=== PATIENT | female | born 1965 | race Caucasian/White ===

== ENCOUNTER 2016-04-10 18:06 | Inpatient (IN) | payer OTHER ==
--- NOTE | 2016-04-10 18:41 | ED Physician Chart ---
Chief Complaint/HPI - Patient Information Date Seen:: 04/10/16 Time Seen:: 18:20 Chief Complaint:: chest pain and shortness of breath History of Present Illness:: onset last night of chest pain and shortness of breath. Chest pain is substernal, sharp, and radiates to left arm. No recent cough. Has left flank pain diagnosed as a UTI one week ago. Took a baby aspirin this am. Allergies:: Allergies Allergy/AdvReac Type Severity Reaction Status Date / Time MDX SULFA (sulfonamide) Allergy Unknown Verified 09/11/12 16:31 [SULFA (sulfonamide)] Historian:: Patient Review:: Nurse's Note Reviewed Review of Systems - Review of Systems General/Constitutional: No fever, No chills Skin: No skin lesions Head: No headache Eyes: No loss of vision ENT: No earache Neck: No neck pain Cardio Vascular: Chest pain Pulmonary: SOB GI: No nausea, No vomiting G/U: No dysuria, No frequency Musculoskeletal: No bone or joint pain, No muscle pain Endocrine: No polyuria, No polydipsia Psychiatric: No prior psych history, No depression Hematopoietic: No bruising Allergic/Immuno: No urticaria Neurological: No syncope, No focal symptoms Past Medical History - Past Medical History Past Medical History: HTN, DM, CHF, Dyslipidemia, PUD/GERD, Other ( hypercholesterolemia) Family History: Heart disease, Diabetes Melitus, HTN Social History: Smoker, Alcohol Surgical History: Cholecystectomy, , other (fracture mandible; tubal ligation) Labs/Radiology/EKG Results - Lab Results Results: Laboratory Results - last 24 hr 04/10/16 04/10/16 04/10/16 18:20 18:20 18:20 WBC 13.0 H D RBC 4.44 Hgb 12.1 D Hct 36.0 D MCV 81.0 MCH 27.2 MCHC Differential 33.6 RDW 14.1 Plt Count 295 MPV 10.1 Neutrophils % 76.0 Lymphocytes % 18.1 L Monocytes % 3.4 Eosinophils % 1.6 Basophils % 0.9 Sodium 134 L Potassium 4.2 Chloride 99 Carbon Dioxide 22.6 Anion Gap 16.6 H BUN 23 Creatinine 1.0 Est GFR ( Amer) > 60.0 Est GFR (Non-Af Amer) > 60.0 BUN/Creatinine Ratio 23.0 Glucose 326 H Calcium 10.0 Magnesium Troponin I B-Natriuretic Peptide 31.4 04/10/16 04/10/16 18:20 18:20 WBC RBC Hgb Hct MCV MCH MCHC Differential RDW Plt Count MPV Neutrophils % Lymphocytes % Monocytes % Eosinophils % Basophils % Sodium Potassium Chloride Carbon Dioxide Anion Gap BUN Creatinine Est GFR ( Amer) Est GFR (Non-Af Amer) BUN/Creatinine Ratio Glucose Calcium Magnesium 1.4 L Troponin I < 0.01 L B-Natriuretic Peptide - EKG Interpretations Rhythm: sinus tach [place]: borderline LAD ED Septic Shock - . Is Septic Shock (SBP<90, OR Lactate>4 mmol\L) present?: No Reassessment (Disposition) - Reassessment Reassessment Condition:: Improved - Diagnosis Diagnosis:: chest pain; diabetes; hyperglycemia - Patient Disposition Admitted to:: Telemetry Spoke to:: Sancho Singh Admitting Medical Physician:: Sancho Singh Condition at Disposition:: Stable, Improved
[2016-04-10 18:43] LABS: % BASOPHILS 0.9 % (0.0-2.0); % EOSINOPHILS 1.6 % (0.0-5.0); % LYMPHOCYTES 18.1 % (20.0-50.0); % MONOCYTES 3.4 % (2.0-10.0); MEAN CORPUSCULAR HEMOGLOBIN 27.2 pg (27.0-31.0); MEAN CORPUSCULAR HGB CONC 33.6 pg (28.0-36.0); MEAN PLATELET VOLUME 10.1 fl; NEUTROPHILE ABSOLUTE 9.9 Th/cmm (1.8-8.0); PLATELET COUNT 295 Th/cmm (150-400); RED BLOOD COUNT 4.44 Mil/cmm (3.80-5.10); RED CELL DISTRIBUTION WIDTH 14.1 % (11.5-20.0)
[2016-04-10 18:46] LABS: HEMOGLOBIN 12.1 gm/dL (11.7-15.5)
[2016-04-10 18:56] LABS: ANION GAP 16.6 (7.0-16.0); BUN - UREA NITROGEN 23 mg/dL (7-25); CARBON DIOXIDE 22.6 mEq/L (21.0-31.0); CHLORIDE 99 mEq/L (98-107); GLUCOSE 326 mg/dL (70-105); POTASSIUM SERUM 4.2 mEq/L (3.5-5.1); SODIUM SERUM 134 mEq/L (136-145)
[2016-04-10] MEDS ORDERED: Mag Sulfate 2gm/50mL Premix 2 GM/50 ML BAG IV ONE ×2 (19:55→20:16)
[2016-04-10] MEDS ORDERED: Non-Formulary Item 1 EA (Albuterol Sulfate [Ventolin Hfa] 1 PUFF) IH PRN (23:18)
[2016-04-10] MEDS ORDERED: HYDROmorphone 1 mg/mL 1mL Syr IVP PRN (23:27)
[2016-04-10] MEDS ORDERED: HYDROmorphone 1 mg/mL 1mL Syr ONE (23:31)
[2016-04-11 00:38] VITALS: BP 115/79
[2016-04-11] MEDS: Sodium Chloride 0.9% 1,000 ML IV SCH ×2 (02:32→20:13)
--- NOTE | 2016-04-11 05:57 | Admit Criteria Form ---
Admit Criteria Forms - Admit Criteria Diagnosis: CHEST PAIN Clinical Indications for Admission to Inpatient Care (Place 'X' for any and all applicable criteria): Admission is indicated for chest pain and ANY ONE of the following(1)(2)(3)(4)(5 ): [ ]I. Angina with acute coronary syndrome (Also use Myocardial Infarction or Angina guideline) [ ]II. Hemodynamic instability [X ]III. Angina needing acute intervention as indicated by ALL of the following (11)(12): [X ]a) Unstable angina is present as indicated by angina that is ANY ONE of the following: [X ]i) New onset [ ]ii) Nocturnal [ ]iii) Prolonged at rest [ ]iv) Progressive [ X]b) Angina warrants acute intervention as indicated by ANY ONE of the following: [ ]i) Recurrent angina (e.g, not responding as previously to treatment) [ ]ii) Angina at rest or with low-level activities despite initial medical therapy [ ]iii) New or presumably new ST-segment depression on ECG [ ]iv) Signs or symptoms of heart failure (eg, dyspnea, pulmonary edema) [ ]v) New or worsening mitral regurgitation [ ]vi) Hemodynamic instability [ ]vii) Dangerous arrhythmia (eg, sustained ventricular tachycardia) [ ]viii) History of percutaneous coronary intervention within 6 months [ ]ix) History of coronary artery bypass graft surgery [ ]x) YOANA risk score of 2 or greater[A] [X ]xi) History of Diabetes(14) [ ]xii) High-risk cardiac ischemia findings on noninvasive testing (e.g, echocardiogram, treadmill testing, nuclear scan) [ ]xiii) Chronic renal insufficiency (ie, estimated GFR less than 60 mL/min/1.732m) [ ]xiv) Left ventricular ejection fraction less than 40% [ ]IV. Evidence of VA (eg, cardiac biomarkers positive, ST-segment elevation on ECG) also use Myocardial Infarction Criteria Form. [ ]V. Pulmonary edema [ ]. Respiratory distress [ ]VII. Chest pain indicative of serious diagnosis other than coronary artery disease (eg, aortic dissection) [ ]VIII. Contraindications and/or Inappropriate clinical situations for Observational Care in patients with Chest Pain, when ANY ONE of the following is required: [ ]a) Patient with risk factor for pulmonary embolism, acute coronary syndrome and myocardial infarction (18) [ ]b) Patient with Pulmonary embolism require an average LOS of 4.3 days, therefore emergency department observation management is inappropriate 18,23 [ ]c) Painful condition/s in the elderly, have the highest rate of recidivism after emergency department observation management (10.8%) 20,21,22 [ ]d) Elevated cardiac biomarker requires intensive and exhaustive care (19) [ ]IX. General contraindications and/or Inappropriate clinical situations for Observational Care in patients with Chest Pain, when ANY ONE of the following is required: [ ]a) Prediction of prolongation of LOS based on ANY ONE of the following may be considered as a contraindication for observational care 2, 3, 4, 5, 6, 7, 8, 9, 10, 11 [ ]i) Age > 65 yrs. [ ]ii) Patient arriving by ambulance [ ]iii) Patient with high acuity [ ]iv) Patient requiring vital sign monitoring [ ]v) Patient on IV medication [ ]b) Systolic blood pressures 180mmHg 3,12 [ ]c) Patient with altered mental status including delirium and other alteration of consciousness, (3) [ ]d) Patient whose discharge disposition will be to a senior living home or rehabilitation home should not be managed in Emergency Department Observation Unit. CMS rule requires 3 days hospital stay before such placement. 3,13 [ ]e) Patient with failure to thrive due to broad array of etiologies 3,16,17 [ ]f) Inability to ambulate 3,14 Extended stay beyond goal length of stay may be needed for (1)(28): [ ]a) Specific condition diagnosed after evaluation (eg, pulmonary embolism, aortic dissection) [ ]b) Unstable angina [ ]c) Continued suspicion of acute coronary syndrome with inability to complete needed cardiac evaluation (eg, patient clinically unable to undergo stress testing) [ ]d) Myocardial infarction (Contents from ANGINA and CHEST PAIN clinical indications for admission to inpatient care have been integrated in this form) The original [facility] [employer] content created by [employer] has been revised. The portions of the content which have been revised are identified through the use of italic text or in bold, and [facility] has neither reviewed nor approved the modified material. All other unmodified content is copyright [facility]. Please see references footnoted in the original [facility] [employer] edition 2016 Admit Criteria Met?: Yes
[2016-04-11] MEDS: Levothyroxine 0.075 Mg Tab PO SCH (06:34)
[2016-04-11] MEDS: INSULIN ASPART SLIDING SCALE 100 UNITS/ML UNIT SUBQ SCH ×4 (06:35→20:15)
--- NOTE | 2016-04-11 08:02 | General Progress Note ---
Subjective - Review of Systems Service Date: 04/11/16 Subjective: I have abdominal pain Objective - Results Result Diagrams: 04/10/16 18:20 04/10/16 18:20 Recent Labs: Laboratory Last Values WBC 13.0 Th/cmm (4.8-10.8) H D 04/10/16 18:20 RBC 4.44 Mil/cmm (3.80-5.10) 04/10/16 18:20 Hgb 12.1 gm/dL (11.7-15.5) D 04/10/16 18:20 Hct 36.0 % (35.0-45.0) D 04/10/16 18:20 MCV 81.0 fl (81-100) 04/10/16 18:20 MCH 27.2 pg (27.0-31.0) 04/10/16 18:20 MCHC Differential 33.6 pg (28.0-36.0) 04/10/16 18:20 RDW 14.1 % (11.5-20.0) 04/10/16 18:20 Plt Count 295 Th/cmm (150-400) 04/10/16 18:20 MPV 10.1 fl 04/10/16 18:20 Neutrophils % 76.0 % (40.0-80.0) 04/10/16 18:20 Lymphocytes % 18.1 % (20.0-50.0) L 04/10/16 18:20 Monocytes % 3.4 % (2.0-10.0) 04/10/16 18:20 Eosinophils % 1.6 % (0.0-5.0) 04/10/16 18:20 Basophils % 0.9 % (0.0-2.0) 04/10/16 18:20 Sodium 134 mEq/L (136-145) L 04/10/16 18:20 Potassium 4.2 mEq/L (3.5-5.1) 04/10/16 18:20 Chloride 99 mEq/L (98-107) 04/10/16 18:20 Carbon Dioxide 22.6 mEq/L (21.0-31.0) 04/10/16 18:20 Anion Gap 16.6 (7.0-16.0) H 04/10/16 18:20 BUN 23 mg/dL (7-25) 04/10/16 18:20 Creatinine 1.0 mg/dL (0.6-1.2) 04/10/16 18:20 Est GFR ( Amer) > 60.0 ml/min (>90) 04/10/16 18:20 Est GFR (Non-Af Amer) > 60.0 ml/min 04/10/16 18:20 BUN/Creatinine Ratio 23.0 04/10/16 18:20 Glucose 326 mg/dL (70-105) H 04/10/16 18:20 POC Glucose 262 MG/DL (70 - 105) H 04/11/16 06:27 Hemoglobin A1c % 14.3 % (4.0-6.0) H 04/10/16 18:20 Calcium 10.0 mg/dL (8.6-10.3) 04/10/16 18:20 Magnesium 1.4 mg/dL (1.9-2.7) L 04/10/16 18:20 Troponin I < 0.01 ng/mL (0.01-0.05) L 04/10/16 18:20 B-Natriuretic Peptide 31.4 pg/mL (5.0-100.0) 04/10/16 18:20 - Physical Exam Vitals and I&O: Vital Signs Temp 98.2 F 04/11/16 04:00 Pulse 83 04/11/16 04:00 Resp 20 04/11/16 04:00 BP 102/61 04/11/16 04:00 Pulse Ox 83 04/11/16 04:00 Intake & Output 04/10/16 04/11/16 04/11/16 18:59 06:59 18:59 Intake Total 250 Balance 250 Weight (lbs) 127.006 kg Intake: Intake, IV Amount 50 Mag Sulfate 2gm/50mL 50 Premix 2 gm In 50 ml @ 25 mls/hr IV X1 ONE Rx#: [id number] Oral 200 Other: # Voids 3 Active Medications: Current Medications Acetaminophen/Hydrocodone Bitart ([place] 5mg/325mg) 1 tab PO Q6H PRN PRN Reason: Pain (Moderate) Stop: 06/10/16 07:48 Aspirin (Aspirin Chewable) 81 mg PO DAILY OMAR Stop: 06/10/16 08:59 Ergocalciferol (Vitamin D) 50,000 iu PO QTUE@0900 OMAR Stop: 06/14/16 08:59 Furosemide (Lasix) 20 mg PO DAILY OMAR Stop: 06/10/16 08:59 Hydromorphone HCl (Dilaudid) 1 mg IVP ONCE PRN PRN Reason: Chest Pain Stop: 06/09/16 23:26 Last Admin: 04/10/16 23:33 Dose: 1 mg Sodium Chloride (Nacl 0.9%) 1,000 mls @ 50 mls/hr IV .Q20H OMAR Stop: 06/09/16 23:29 Last Admin: 04/11/16 02:32 Dose: 50 mls/hr Ceftriaxone Sodium 1 gm/ (Sodium Chloride) 50 mls @ 100 mls/hr IV Q24HR OMAR Stop: 06/10/16 07:59 Insulin Aspart (Novolog Insulin Sliding Scale) 0 units SUBQ ACHS OMAR PRN Reason: Protocol Stop: 06/10/16 07:29 Last Admin: 04/11/16 06:35 Dose: 1,000 units Levothyroxine Sodium (Synthroid) 0.075 mg PO QDAC OMAR Stop: 06/10/16 07:29 Last Admin: 04/11/16 06:34 Dose: 0.075 mg Lisinopril (Zestril) 20 mg PO DAILY OMAR Stop: 06/10/16 08:59 Metformin HCl (Glucophage) 1,000 mg PO BIDWM [facility] Stop: 06/10/16 07:59 Miscellaneous (Albuterol Sulfate [Ventolin Hfa]) 1 puff IH PRN PRN PRN Reason: DYSPNEA Miscellaneous (Alprazolam [Alprazolam*]) 0.5 mg PO DAILY [facility] Stop: 06/10/16 08:59 Miscellaneous (Beclomethasone Dipropionate [Qvar]) 8.7 gm IH DAILY [facility]MAR Stop: 06/10/16 08:59 Pantoprazole Sodium (Protonix) 40 mg PO DAILY [facility] Stop: 06/10/16 08:59 Potassium Chloride (Klor-Con) 10 meq PO DAILY [facility] Stop: 06/10/16 08:59 Simvastatin (Zocor) 20 mg PO QPM OMAR PRN Reason: Protocol Stop: 06/10/16 16:59 General: Alert, Oriented x3, Cooperative, Mild distress HEENT: Atraumatic Neck: Supple Cardiovascular: Regular rate Lungs: Clear to auscultation Abdomen: Bowel sounds, Other (Tender at palpation in left blank) Extremities: Other (No edema) Neurological: Normal gait Skin: Other ([place] nad dry) Psych/Mental Status: Mental status NL - Procedures Procedures: Procedures Procedure Code Date DRESSING OF WOUND NEC 93.57 10/08/08 Assessment/Plan - Problem List Patient Problems: All Active Problems CHEST PAIN WITH DYSPNEA (Acute) Dermatitis (Acute) L30.9 Toe swelling (Acute) M79.89 scabies (Acute) - Assessment Assessment: Patient is awake alert, calm. Dx: Chest pain and SOB, CHF, DM, HTN, Hypothyroidism, Hyperlipemia, Acid reflux. - Plan Plan: Awaiting Cardiology eval, Abdominal US requested, UA and tsh requested. Ceftriaxone added to treatment.
[2016-04-11] MEDS: Potassium Chloride 10 mEq ER Tab PO SCH (08:18)
[2016-04-11] MEDS: Pantoprazole 40 mg EC Tab PO SCH (08:18)
[2016-04-11] MEDS: Aspirin 81mg Chewable Tab PO SCH (08:18)
[2016-04-11] MEDS ORDERED: HYDROmorphone 1 mg/mL 1mL Syr IVP ONE (08:30)
[2016-04-11] MEDS: Hydrocodone/APAP 5mg/325mg Tab PO PRN ×2 (08:31→18:22)
[2016-04-11] MEDS ORDERED: BECLOMETHASONE DIPROPIONATE 8.7 GM IH SCH (09:00)
[2016-04-11] MEDS: cefTRIAXone 1 GM in Sodium Chloride 0.9% 50 ML IV SCH (09:09)
--- NOTE | 2016-04-11 09:26 | History & Physical ---
CHIEF COMPLAINT: Chest pain and shortness of breath. HISTORY OF PRESENT ILLNESS: This is the case of a 50-year-old female who referred last night she started to have shortness of breath and chest pain. Chest pain worse and radiates to the left arm. Reason why, she was decided to come to Emergency Room for evaluation and treatment. PAST MEDICAL HISTORY: The patient has past medical history of congestive heart failure, diabetes mellitus, hypertension, hyperlipidemia, hypothyroidism and acid reflux and obesity. SOCIAL HISTORY: The patient lives at home. She referred smoking and drinking occasionally. She denies use of drugs. FAMILY HISTORY: Unremarkable. PAST SURGICAL HISTORY: The patient refers 1 , cholecystectomy, and salpingoplasty. ALLERGIES: THE PATIENT IS ALLERGIC TO ____. REVIEW OF SYSTEMS: LUNGS: The patient referred shortness of breath. HEART: The patient referred chest pain. ABDOMEN: The patient referred abdominal pain in the left flank. EXTREMITIES: Unremarkable. PHYSICAL EXAMINATION: GENERAL: The patient is awake, alert, in no acute distress at this moment. HEENT: Head is normocephalic and atraumatic. Eyes: Pupils reactive to light. Fundus not examined at this time. Nose: No evidence of nasal obstruction. Ears: No evidence of any discharge. Mouth: Fairly ____. LUNGS: Bilateral air entry. No wheezing, no crackles. HEART: Regular and rhythmic. ABDOMEN: Soft and tender on palpation in the left flank. Bowel sounds present. EXTREMITIES: No edema. Full movement of all extremities. NEUROLOGICAL: The patient is awake, alert, in no acute distress. Nerves 2-12 grossly intact. No neurological deficit at this moment. IMPRESSION: 1. Typical chest pain. 2. Congestive heart failure. 3. Diabetes mellitus. 4. Hypertension. 5. Hypothyroidism. 6. Hyperlipidemia. 7. Acid reflux. PLAN: 1. The patient will be admitted in the telemetry unit. 2. Continue with home medications. 3. Consult with Dr. Laz Taylor, Cardiology. 4. CBC, CMP, TSH in a.m. 5. Abdominal ultrasound. 6. Diet: Low in sodium and diabetic diet. JOB# [id number]
--- NOTE | 2016-04-11 11:29 | Diagnostic Imaging Report ---
Portable chest x-ray History: Pain Allowing for portable technique the heart size is normal. No focal pulmonary parenchymal processes. No hilar or mediastinal abnormalities. Impression: No acute abnormalities.
[2016-04-11 18:29] LABS: URINE BACTERIA FEW /hpf (NONE SEEN); URINE BILIRUBIN NEGATIVE (NEGATIVE); URINE BLOOD NEGATIVE (NEGATIVE); URINE COLOR YELLOW; URINE EPITHELIAL CELLS FEW /lpf (FEW); URINE GLUCOSE (UA) 100 mg/dL (NEGATIVE); URINE KETONE NEGATIVE (NEGATIVE); URINE PH 5.5; URINE PROTEIN NEGATIVE (NEGATIVE); URINE RBC NONE SEEN /hpf (0-5); URINE UROBILINOGEN 0.2 E.U./dL (0.2 - 1.0); URINE WBC 0-2 /hpf (0-5)
[2016-04-11 21:58] LABS: % BASOPHILS 0.8 % (0.0-2.0); % EOSINOPHILS 4.5 % (0.0-5.0); % LYMPHOCYTES 20.9 % (20.0-50.0); % MONOCYTES 5.6 % (2.0-10.0); % NEUTROPHILS 68.2 % (40.0-80.0); HEMATOCRIT 33.4 % (35.0-45.0); HEMOGLOBIN 11.1 gm/dL (11.7-15.5); MEAN CELL VOLUME 80.9 fl (81-100); MEAN CORPUSCULAR HGB CONC 33.4 pg (28.0-36.0); MEAN PLATELET VOLUME 9.1 fl; NEUTROPHILE ABSOLUTE 8.3 Th/cmm (1.8-8.0); PLATELET COUNT 269 Th/cmm (150-400); RED BLOOD COUNT 4.13 Mil/cmm (3.80-5.10); RED CELL DISTRIBUTION WIDTH 13.9 % (11.5-20.0); WHITE BLOOD COUNT 12.1 Th/cmm (4.8-10.8)
[2016-04-11 22:12] LABS: ALB/GLOB RATIO 0.9 (1.0-1.8); ALKALINE PHOSPHATASE 44 U/L (34-104); ANION GAP 10.7 (7.0-16.0); BILIRUBIN,TOTAL 0.4 mg/dL (0.3-1.0); BUN - UREA NITROGEN 18 mg/dL (7-25); BUN/CREATININE RATIO 22.5; CALCIUM SERUM 9.3 mg/dL (8.6-10.3); CARBON DIOXIDE 26.4 mEq/L (21.0-31.0); CHLORIDE 100 mEq/L (98-107); CREATININE - SERUM 0.8 mg/dL (0.6-1.2); GLUCOSE 217 mg/dL (70-105); POTASSIUM SERUM 4.1 mEq/L (3.5-5.1); SGOT 11 U/L (13-39); SGPT/ALT 11 U/L (7-52); SODIUM SERUM 133 mEq/L (136-145)
--- NOTE | 2016-04-12 01:54 | Consultation ---
The patient is of Dr. Singh. HISTORY AND PHYSICAL: This is a 50-year-old obese female patient who had been complaining of chest pain and shortness of breath. Following this, the patient came to the Emergency Room. The patient has troponin level normal. The patient has uncontrolled diabetes and the patient is admitted. PAST MEDICAL HISTORY: Congestive heart failure, diabetes mellitus type 2, hypertension, hyperlipidemia, hypothyroidism, GERD, obesity, cholecystectomy, and . FAMILY HISTORY: Unremarkable. SOCIAL HISTORY: No history of smoking or alcohol abuse. ALLERGIES: No known allergies. PHYSICAL EXAMINATION: VITAL SIGNS: Blood pressure 138/82, pulse 78, and respirations 28. HEAD: Normocephalic. No lumps or bumps. EYES: Pupils are equal and reactive to light. Fundi show AV nicking, sclerae white, and conjunctivae pink. NECK: Carotid 2+. Normal upstroke. JVD flat. Thyroid not palpable. Lymph nodes not palpable. CHEST: Shows increased AP diameter. No kyphosis or scoliosis. LUNGS: Bilateral bronchovesicular breath sounds. HEART: PMI fifth intercostal space with lateral to midclavicular line. S1 and S2. No S3, S4. Systolic murmur, grade 2/6 lower left sternal border without radiation. ABDOMEN: Soft. Liver and spleen not palpable. No organomegaly. Bowel sounds active. NEUROLOGIC: No focal neurological deficit. EXTREMITIES: Peripheral pulses 2+. No pedal edema. CLINICAL IMPRESSION: Atypical chest pain, troponin level normal; congestive heart failure, controlled; diabetes mellitus type 2, uncontrolled; hypertension; hyperlipidemia; hypothyroidism; morbid obesity; gastroesophageal reflux disease; cholecystectomy, and section. PLAN: The patient to get troponin level, EKG, control the diabetes, and also get an echocardiogram. JOB# [id number]
[2016-04-12] MEDS: Hydrocodone/APAP 5mg/325mg Tab PO PRN ×3 (02:01→20:24)
[2016-04-12 06:25] LABS: % BASOPHILS 0.5 % (0.0-2.0); % EOSINOPHILS 4.5 % (0.0-5.0); % LYMPHOCYTES 21.2 % (20.0-50.0); % MONOCYTES 4.8 % (2.0-10.0); HEMATOCRIT 35.2 % (35.0-45.0); HEMOGLOBIN 11.7 gm/dL (11.7-15.5); MEAN CELL VOLUME 81.1 fl (81-100); MEAN CORPUSCULAR HGB CONC 33.3 pg (28.0-36.0); MEAN PLATELET VOLUME 10.3 fl; NEUTROPHILE ABSOLUTE 8.5 Th/cmm (1.8-8.0); PLATELET COUNT 310 Th/cmm (150-400); RED BLOOD COUNT 4.34 Mil/cmm (3.80-5.10); RED CELL DISTRIBUTION WIDTH 14.3 % (11.5-20.0); WHITE BLOOD COUNT 12.4 Th/cmm (4.8-10.8)
[2016-04-12] MEDS: Levothyroxine 0.075 Mg Tab PO SCH (06:37)
[2016-04-12] MEDS: INSULIN ASPART SLIDING SCALE 100 UNITS/ML UNIT SUBQ SCH ×4 (06:40→20:22)
[2016-04-12 06:51] LABS: ALB/GLOB RATIO 0.9 (1.0-1.8); ALKALINE PHOSPHATASE 49 U/L (34-104); ANION GAP 11.3 (7.0-16.0); BILIRUBIN,TOTAL 0.6 mg/dL (0.3-1.0); BUN - UREA NITROGEN 17 mg/dL (7-25); BUN/CREATININE RATIO 21.3; CALCIUM SERUM 9.4 mg/dL (8.6-10.3); CARBON DIOXIDE 27.7 mEq/L (21.0-31.0); CHLORIDE 98 mEq/L (98-107); CREATININE - SERUM 0.8 mg/dL (0.6-1.2); GLUCOSE 228 mg/dL (70-105); SGOT 11 U/L (13-39); SGPT/ALT 12 U/L (7-52); SODIUM SERUM 133 mEq/L (136-145)
[2016-04-12] MEDS: cefTRIAXone 1 GM in Sodium Chloride 0.9% 50 ML IV SCH (08:53)
[2016-04-12] MEDS: Potassium Chloride 10 mEq ER Tab PO SCH (08:55)
[2016-04-12] MEDS: Aspirin 81mg Chewable Tab PO SCH (08:55)
[2016-04-12] MEDS: Pantoprazole 40 mg EC Tab PO SCH (08:55)
--- NOTE | 2016-04-12 10:27 | Diagnostic Imaging Report ---
Abdominal ultrasound HISTORY: Pain Exam is limited due to patient size, body habitus, bowel gas. The liver appears enlarged. In addition, there appears to be an increase in hepatic parenchymal echogenicity. The findings may be associated with fatty infiltration and should be correlated with liver function tests. No focal lesions. The gallbladder is not seen consistent with patient's surgical history. Common bile duct cannot be visualized. The pancreas cannot be seen. No focal renal lesions or hydronephrosis. The spleen appears somewhat enlarged to 12.0 cm length). No other obvious retroperitoneal or intra-abdominal abnormalities. IMPRESSION: 1. Limited exam due to patient's size, body habitus, and bowel gas 2. Hepatosplenomegaly
[2016-04-12] MEDS ORDERED: cefTRIAXone 1 GM in Sodium Chloride 0.9% 100 ML IV SCH (11:21)
--- NOTE | 2016-04-12 12:20 | General Progress Note ---
Subjective - Review of Systems Service Date: 04/12/16 Subjective: I have abdominal pain Objective - Results Result Diagrams: 04/12/16 05:20 04/12/16 05:20 Recent Labs: Laboratory Last Values WBC 12.4 Th/cmm (4.8-10.8) H 04/12/16 05:20 RBC 4.34 Mil/cmm (3.80-5.10) 04/12/16 05:20 Hgb 11.7 gm/dL (11.7-15.5) 04/12/16 05:20 Hct 35.2 % (35.0-45.0) 04/12/16 05:20 MCV 81.1 fl (81-100) 04/12/16 05:20 MCH 27.0 pg (27.0-31.0) 04/12/16 05:20 MCHC Differential 33.3 pg (28.0-36.0) 04/12/16 05:20 RDW 14.3 % (11.5-20.0) 04/12/16 05:20 Plt Count 310 Th/cmm (150-400) 04/12/16 05:20 MPV 10.3 fl 04/12/16 05:20 Neutrophils % 69.0 % (40.0-80.0) 04/12/16 05:20 Lymphocytes % 21.2 % (20.0-50.0) 04/12/16 05:20 Monocytes % 4.8 % (2.0-10.0) 04/12/16 05:20 Eosinophils % 4.5 % (0.0-5.0) 04/12/16 05:20 Basophils % 0.5 % (0.0-2.0) 04/12/16 05:20 Sodium 133 mEq/L (136-145) L 04/12/16 05:20 Potassium 4.0 mEq/L (3.5-5.1) 04/12/16 05:20 Chloride 98 mEq/L (98-107) 04/12/16 05:20 Carbon Dioxide 27.7 mEq/L (21.0-31.0) 04/12/16 05:20 Anion Gap 11.3 (7.0-16.0) 04/12/16 05:20 BUN 17 mg/dL (7-25) 04/12/16 05:20 Creatinine 0.8 mg/dL (0.6-1.2) 04/12/16 05:20 Est GFR ( Amer) > 60.0 ml/min (>90) 04/12/16 05:20 Est GFR (Non-Af Amer) > 60.0 ml/min 04/12/16 05:20 BUN/Creatinine Ratio 21.3 04/12/16 05:20 Glucose 228 mg/dL (70-105) H 04/12/16 05:20 POC Glucose 283 MG/DL (70 - 105) H 04/12/16 11:13 Hemoglobin A1c % 14.3 % (4.0-6.0) H 04/10/16 18:20 Calcium 9.4 mg/dL (8.6-10.3) 04/12/16 05:20 Magnesium 1.4 mg/dL (1.9-2.7) L 04/10/16 18:20 Total Bilirubin 0.6 mg/dL (0.3-1.0) 04/12/16 05:20 AST 11 U/L (13-39) L 04/12/16 05:20 ALT 12 U/L (7-52) 04/12/16 05:20 Alkaline Phosphatase 49 U/L (34-104) 04/12/16 05:20 Troponin I < 0.01 ng/mL (0.01-0.05) L 04/10/16 18:20 B-Natriuretic Peptide 31.4 pg/mL (5.0-100.0) 04/10/16 18:20 Total Protein 7.4 gm/dL (6.0-8.3) 04/12/16 05:20 Albumin 3.5 gm/dL (3.7-5.3) L 04/12/16 05:20 Globulin 3.9 gm/dL 04/12/16 05:20 Albumin/Globulin Ratio 0.9 (1.0-1.8) L 04/12/16 05:20 TSH 2.07 uIU/ml (0.34-5.60) 04/11/16 21:48 Urine Source CLEAN C 04/11/16 18:00 Urine Color YELLOW 04/11/16 18:00 Urine Clarity CLEAR (CLEAR) 04/11/16 18:00 Urine pH 5.5 04/11/16 18:00 Ur Specific [place] 1.020 (1.005-1.030) 04/11/16 18:00 Urine Protein NEGATIVE mg/dL (NEGATIVE) 04/11/16 18:00 Urine Glucose (UA) 100 mg/dL (NEGATIVE) H 04/11/16 18:00 Urine Ketones NEGATIVE mg/dL (NEGATIVE) 04/11/16 18:00 Urine Blood NEGATIVE (NEGATIVE) 04/11/16 18:00 Urine Nitrate NEGATIVE (NEGATIVE) 04/11/16 18:00 Urine Bilirubin NEGATIVE (NEGATIVE) 04/11/16 18:00 Urine Urobilinogen 0.2 E.U./dL (0.2 - 1.0) 04/11/16 18:00 Ur Leukocyte Esterase NEGATIVE (NEGATIVE) 04/11/16 18:00 Urine RBC NONE SEEN /hpf (0-5) 04/11/16 18:00 Urine WBC 0-2 /hpf (0-5) 04/11/16 18:00 Ur Epithelial Cells FEW /lpf (FEW) 04/11/16 18:00 Urine Bacteria FEW /hpf (NONE SEEN) 04/11/16 18:00 - Physical Exam Vitals and I&O: Vital Signs Temp 97.2 F 04/12/16 07:50 Pulse 78 04/12/16 08:55 Resp 20 04/12/16 07:50 BP 112/60 04/12/16 08:55 Pulse Ox 98 04/12/16 07:50 Intake & Output 04/11/16 04/12/16 04/12/16 18:59 06:59 18:59 Intake Total 800 1084.167 Output Total 6 Balance 794 1084.167 Intake: Intake, IV Amount 50 884.167 Sodium Chloride 0.9% 1, 884.167 000 ml @ 50 mls/hr IV . Q20H [facility] Rx#:[id number] cefTRIAXone 1 gm In 50 Sodium Chloride 0.9% 50 ml @ 100 mls/hr IV Q24H O[facility] Rx#:[id number] Oral 750 200 Output: Urine 6 Other: # Voids 2 Active Medications: Current Medications Acetaminophen/Hydrocodone Bitart ([place] 5mg/325mg) 1 tab PO Q6H PRN PRN Reason: Pain (Moderate) Stop: 06/10/16 07:48 Last Admin: 04/12/16 09:12 Dose: 1 tab Alprazolam (Xanax) 0.5 mg PO DAILY OMAR Stop: 06/10/16 08:59 Last Admin: 04/12/16 08:55 Dose: 0.5 mg Aspirin (Aspirin Chewable) 81 mg PO DAILY O[facility] Stop: 06/10/16 08:59 Last Admin: 04/12/16 08:55 Dose: 81 mg Ergocalciferol (Vitamin D) 50,000 iu PO QTUE@0900 [facility] Stop: 06/14/16 08:59 Furosemide (Lasix) 20 mg PO DAILY O[facility] Stop: 06/10/16 08:59 Last Admin: 04/12/16 08:55 Dose: 20 mg Heparin Sodium (Porcine) (Heparin) 5,000 units SUBQ Q12HR [facility] Stop: 06/10/16 20:59 Last Admin: 04/12/16 08:56 Dose: 5,000 units Sodium Chloride (Nacl 0.9%) 1,000 mls @ 50 mls/hr IV .Q20H [facility] Stop: 06/09/16 23:29 Last Admin: 04/11/16 20:13 Dose: 50 mls/hr Ceftriaxone Sodium 1 gm/ (Sodium Chloride) 100 mls @ 100 mls/hr IV Q24H [facility] Stop: 06/10/16 07:59 Last Admin: 04/12/16 11:42 Dose: Not Given Insulin Aspart (Novolog Insulin Sliding Scale) 0 units SUBQ ACHS OMAR PRN Reason: Protocol Stop: 06/10/16 07:29 Last Admin: 04/12/16 11:43 Dose: 6 units Levothyroxine Sodium (Synthroid) 0.075 mg PO QDAC [facility] Stop: 06/10/16 07:29 Last Admin: 04/12/16 06:37 Dose: 0.075 mg Lisinopril (Zestril) 20 mg PO DAILY [facility] Stop: 06/10/16 08:59 Last Admin: 04/12/16 08:55 Dose: 20 mg Metformin HCl (Glucophage) 1,000 mg PO BIDWM [facility] Stop: 06/10/16 07:59 Last Admin: 04/12/16 08:54 Dose: 1,000 mg Miscellaneous (Albuterol Sulfate [Ventolin Hfa]) 1 puff IH PRN PRN PRN Reason: DYSPNEA Miscellaneous (Beclomethasone Dipropionate [Qvar]) 8.7 gm IH DAILY [facility] Stop: 06/10/16 08:59 Pantoprazole Sodium (Protonix) 40 mg PO DAILY [facility] Stop: 06/10/16 08:59 Last Admin: 04/12/16 08:55 Dose: 40 mg Potassium Chloride (Klor-Con) 10 meq PO DAILY [facility] Stop: 06/10/16 08:59 Last Admin: 04/12/16 08:55 Dose: 10 meq Simvastatin (Zocor) 20 mg PO QPM O[facility] PRN Reason: Protocol Stop: 06/10/16 16:59 Last Admin: 04/11/16 16:21 Dose: 20 mg General: Alert, Oriented x3, No acute distress HEENT: Atraumatic Neck: Supple Cardiovascular: Regular rate Lungs: Clear to auscultation Abdomen: Bowel sounds, Soft, Other (Tender at palpation on right costal area) Extremities: Other (No edema) Neurological: Normal gait Skin: Other (Warm and dry) Psych/Mental Status: Mental status NL - Procedures Procedures: Procedures Procedure Code Date DRESSING OF WOUND NEC 93.57 10/08/08 Assessment/Plan - Problem List Patient Problems: All Active Problems CHEST PAIN WITH DYSPNEA (Acute) Dermatitis (Acute) L30.9 Toe swelling (Acute) M79.89 scabies (Acute) - Assessment Assessment: Patient is awake alert, calm. Dx: Chest pain and SOB, CHF, DM, HTN, Hypothyroidism, Hyperlipemia, Acid reflux. Abdominal US shows hepatoesplenomegaly. - Plan Plan: Cardia eval done. EKG, Echocardiogram requested.
[2016-04-13] MEDS: Sodium Chloride 0.9% 1,000 ML IV SCH (04:45)
[2016-04-13 05:41] LABS: % BASOPHILS 0.9 % (0.0-2.0); % EOSINOPHILS 5.1 % (0.0-5.0); % LYMPHOCYTES 27.9 % (20.0-50.0); % MONOCYTES 5.4 % (2.0-10.0); % NEUTROPHILS 60.7 % (40.0-80.0); HEMATOCRIT 32.2 % (35.0-45.0); HEMOGLOBIN 10.7 gm/dL (11.7-15.5); MEAN CELL VOLUME 80.2 fl (81-100); MEAN CORPUSCULAR HEMOGLOBIN 26.6 pg (27.0-31.0); MEAN CORPUSCULAR HGB CONC 33.2 pg (28.0-36.0); MEAN PLATELET VOLUME 9.4 fl; NEUTROPHILE ABSOLUTE 5.9 Th/cmm (1.8-8.0); PLATELET COUNT 282 Th/cmm (150-400); RED BLOOD COUNT 4.01 Mil/cmm (3.80-5.10); RED CELL DISTRIBUTION WIDTH 13.6 % (11.5-20.0)
[2016-04-13 05:48] LABS: WHITE BLOOD COUNT 9.7 Th/cmm (4.8-10.8)
[2016-04-13 06:01] LABS: ALB/GLOB RATIO 0.9 (1.0-1.8); ALKALINE PHOSPHATASE 44 U/L (34-104); ANION GAP 11.4 (7.0-16.0); BILIRUBIN,TOTAL 0.4 mg/dL (0.3-1.0); BUN - UREA NITROGEN 20 mg/dL (7-25); CALCIUM SERUM 8.8 mg/dL (8.6-10.3); CARBON DIOXIDE 26.8 mEq/L (21.0-31.0); CHLORIDE 100 mEq/L (98-107); CREATININE - SERUM 0.8 mg/dL (0.6-1.2); GLUCOSE 308 mg/dL (70-105); POTASSIUM SERUM 4.2 mEq/L (3.5-5.1); SGOT 8 U/L (13-39); SGPT/ALT 10 U/L (7-52); SODIUM SERUM 134 mEq/L (136-145)
[2016-04-13] MEDS: INSULIN ASPART SLIDING SCALE 100 UNITS/ML UNIT SUBQ SCH ×2 (06:37→11:58)
[2016-04-13] MEDS: Levothyroxine 0.075 Mg Tab PO SCH (06:38)
[2016-04-13] MEDS ORDERED: cefTRIAXone 1 GM in Sodium Chloride 0.9% 100 ML IV SCH (08:00)
[2016-04-13] MEDS: Potassium Chloride 10 mEq ER Tab PO SCH (09:04)
[2016-04-13] MEDS: Aspirin 81mg Chewable Tab PO SCH (09:05)
[2016-04-13] MEDS: Pantoprazole 40 mg EC Tab PO SCH (09:18)
--- NOTE | 2016-04-13 19:37 | Cardiology ---
The patient of Dr. Sancho Singh. M-MODE: Echocardiogram Mitral valve, anterior leaflet of mitral valve shows normal excursion, EF velocity. Posterior leaflet of the mitral valve shows normal excursion. Left ventricular posterior wall shows increased thickness, normal excursion. Interventricular septum shows increased thickness, normal excursion, hypertrophy of the left ventricle, ejection fraction 50%. Left atrium enlarged 4.2 cm. Aortic root showed normal dimension, normal excursion of aortic leaflets. CONCLUSION: Hypertrophy of the left ventricle, left atrial enlargement, ejection fraction 50%. 2D ECHO: Long axis view shows normal sized left ventricle with hypertrophy of the left ventricle. Left atrium enlarged. Aortic root shows normal dimension, normal excursion of aortic leaflets. Short axis view of mitral valve normal. Short axis view aortic valve normal. Apical four chamber view showed normal sized left ventricle with hypertrophy of the left ventricle. Left atrium enlarged Right ventricular cavity, right atrium normal, no pericardial effusion. CONCLUSION: Hypertrophy of the left ventricle, left atrial enlargement, ejection fraction 50%. Doppler study shows prominent A wave consistent with poor compliance of left ventricle, trace mild tricuspid regurgitation. [facility]# [id number]
--- NOTE | 2016-04-18 21:22 | Discharge Summary ---
CHIEF COMPLAINT: Chest pain and shortness of breath. HISTORY OF PRESENT ILLNESS: This is the case of a 50-year-old female who referred that she started with shortness of breath and chest pain that radiated to the left arm, reason why she decided to come to Emergency Room for evaluation and treatment. HOSPITAL COURSE AND TREATMENT: This patient was admitted in the telemetry unit. She was started on IV normal saline. She was continued with all home medications. Dilaudid was given for control of pain. Consult with Dr. Laz Taylor, Cardiology was done and recommendations were followed. With this treatment and after 4 days in the hospital and due to the patient improved, the pain disappeared. Decision was done to discharge the patient to continue treatment with primary care physician. MEDICAL OFFICE ADMINISTRATOR IN THIS CASE: Dr. Laz Taylor, Cardiology. CONDITION ON DISCHARGE: At the moment of the discharge, the patient was awake, alert, and in no acute distress. DISPOSITION: The patient is sent home to continue treatment with primary care physician. DIAGNOSES: 1. Atypical chest pain. 2. failure. 3. Diabetes mellitus. 4. Hypothyroidism. 5. Hypertension. 6. Hyperlipidemia. 7. Gastroesophageal reflux disease. JOB# [id number]
== END 2016-04-13 13:50 | disposition home or self-care (01) | DRG 194 ==
LOC: ER 18:06 → TELE 22:14
PROVIDERS: ADMIT General Practice; ATTEND General Practice
DX: I11.0 Hypertensive heart disease with heart failure (principal); Z68.43 Body mass index [BMI] 50.0-59.9, adult; E11.65 Type 2 diabetes mellitus with hyperglycemia; R16.2 Hepatomegaly with splenomegaly, not elsewhere classified; E66.01 Morbid (severe) obesity due to excess calories; R07.89 Other chest pain; I50.9 Heart failure, unspecified; E03.9 Hypothyroidism, unspecified; E78.5 Hyperlipidemia, unspecified; K21.9 Gastro-esophageal reflux disease without esophagitis; E78.00 Pure hypercholesterolemia, unspecified; Z88.2 Allergy status to sulfonamides; Z82.49 Family history of ischemic heart disease and other diseases of the circulatory system; Z83.3 Family history of diabetes mellitus; Z90.49 Acquired absence of other specified parts of digestive tract; Z98.51 Tubal ligation status; Z98.890 Other specified postprocedural states
CPT/HCPCS: 36415-UA; 71010-TC; 76700-TC; 80048-TC; 80053-TC; 81001-TC; 82948-90; 83036-90; 83735-TC; 83880-TC; 84443-TC; 84484-TC; 85025-TC; 93005; J0696; J1170; J1644; J1815; J3475; J7030; Z7610